=== PATIENT | male | born 1950 | race Caucasian/White ===

== ENCOUNTER 2023-02-20 21:17 | Observation (INO) ==
[2023-02-20 23:10] LABS: ABS Eosinophils 0.1 10^3/uL (0.0-0.5); ABS Lymphocytes 0.4 10^3/uL (1.0-4.8); ABS Monocytes 0.6 10^3/uL (0.0-1.1); ABS Neutrophils 4.9 10^3/uL (1.5-7.6); Eosinophil % 0.9 %; Hematocrit 34.2 % (38-53); Hemoglobin 11.9 g/dL (13.2-16.3); Lymphocyte % 6.1 %; Mean Corpuscular Hemoglobin 28.4 pg (27-33); Mean Corpuscular Hgb Conc 34.7 g/dL (31-36); Mean Corpuscular Volume 81.8 fL (80-97); Mean Platelet Volume 8.1 fL (7.5-11.2); Platelet Count 148 10^3/uL (150-450); Red Blood Count 4.18 10^6/uL (4.06-5.63); Red Cell Distribution Width 17.3 % (12-17)
[2023-02-20 23:30] LABS: ALT 21 U/L (7-52); Albumin 3.2 g/dL (3.2-5.2); Albumin/Globulin Ratio 0.7 (1-3); Alkaline Phosphatase 125 U/L (35-149); Anion Gap 10 mmol/L (2-16); Blood Urea Nitrogen 35 mg/dL (6-24); C Reactive Protein 184.33 mg/L (<8.01); CO2 Carbon Dioxide 21 mmol/L (22-32); Calcium 8.8 mg/dL (8.6-10.3); Chloride 97 mmol/L (101-111); Creatinine, Serum 2.01 mg/dL (0.67-1.17); Globulin 4.7 g/dL (2-4); Glucose 63 mg/dL (70-100); Sodium 128 mmol/L (135-145); Total Bilirubin 0.8 mg/dL (0.2-1.0); Total Protein 7.9 g/dL (6.4-8.9); eGFR CKD-EPI 34.2 (>60)
[2023-02-21 01:02] LABS: Urine Appearance Cloudy; Urine Bilirubin Negative (Negative); Urine Blood Negative (Negative); Urine Color Yellow; Urine Glucose Negative (Negative); Urine Ketones Negative (Negative); Urine Nitrite Negative (Negative); Urine Protein 1+(30 mg/dL) (Negative); Urine Specific Gravity 1.015 (1.002-1.030); Urine Urobilinogen Negative (Negative)
[2023-02-21 01:10] LABS: Urine Bacteria Absent (Absent); Urine Red Blood Cell Trace(0-2/hpf) (Absent); Urine Squamous Epithelial Cell Present (Absent); Urine White Blood Cell Trace(0-5/hpf) (Absent)
[2023-02-21 02:34] LABS: Potassium Redraw 3.3 mmol/L (3.5-5.0)
[2023-02-21] MEDS ORDERED: Ondansetron 4 mg VIAL 2 MG/ML 2 ml VIAL IV PRN (04:05)
[2023-02-21] MEDS ORDERED: Dextrose 50% Syringe 50 ml 25 GM/50 ML SYRINGE IV PUSH PRN (04:15)
[2023-02-21] MEDS: cefTRIAXone 2 gm/50 mL D5W 2 GM/50 ML BAG IV SCH (05:39)
[2023-02-21] MEDS: Albumin Human 25% 25 GM/100 ML BTL IV SCH ×4 (06:39→12:24)
[2023-02-21 08:07] LABS: TSH Ultra Thyroid Stim Horm 1.83 mcIU/mL (0.34-5.60)
[2023-02-21 10:44] LABS: Hematocrit 29.9 % (38-53); Mean Corpuscular Hemoglobin 27.9 pg (27-33); Mean Corpuscular Hgb Conc 33.5 g/dL (31-36); Mean Corpuscular Volume 83.4 fL (80-97); Mean Platelet Volume 8.1 fL (7.5-11.2); Platelet Count 102 10^3/uL (150-450); Red Blood Count 3.59 10^6/uL (4.06-5.63); Red Cell Distribution Width 16.9 % (12-17); White Blood Count 3.6 10^3/uL (3.6-10.2)
[2023-02-21 11:06] LABS: ALT 36 U/L (7-52); Albumin 3.8 g/dL (3.2-5.2); Albumin/Globulin Ratio 1.1 (1-3); Alkaline Phosphatase 138 U/L (35-149); Anion Gap 11 mmol/L (2-16); Blood Urea Nitrogen 34 mg/dL (6-24); CO2 Carbon Dioxide 24 mmol/L (22-32); Calcium 9.2 mg/dL (8.6-10.3); Chloride 99 mmol/L (101-111); Creatinine, Serum 1.82 mg/dL (0.67-1.17); Globulin 3.6 g/dL (2-4); Glucose 102 mg/dL (70-100); Sodium 134 mmol/L (135-145); Total Bilirubin 0.6 mg/dL (0.2-1.0); Total Protein 7.4 g/dL (6.4-8.9); eGFR CKD-EPI 38.5 (>60)
[2023-02-21 11:43] LABS: ABS Lymphocytes 0.3 10^3/uL (1.0-4.8); ABS Monocytes 0.5 10^3/uL (0.0-1.1); ABS Neutrophils 2.8 10^3/uL (1.5-7.6); Eosinophil % 0.5 %; Lymphocyte % 8.8 %; Nucleated Red Blood Cells % 0.1 %/100WBC (0.0-0.8); RBC Morphology Normal (Normal)
[2023-02-21 12:18] LABS: Body Fluid Appearance Clear; Body Fluid Color Yellow; Body Fluid Source Peritonial Fluid
[2023-02-21 12:39] LABS: Body Fluid Total Nucleated 80 /mcL
[2023-02-21 12:47] LABS: Potassium Redraw 3.9 mmol/L (3.5-5.0)
[2023-02-21 13:17] LABS: INR 1.24 (0.83-1.13)
[2023-02-21 13:43] LABS: Body Fluid Mono 61 %; Body Fluid Total Cells Counted 200; Body Fluid Variant Lymph 1 %
[2023-02-21] MEDS ORDERED: Enoxaparin 40 MG/0.4 ML SYR SUBCUT SCH (17:00)
[2023-02-22] MEDS: cefTRIAXone 2 gm/50 mL D5W 2 GM/50 ML BAG IV SCH (06:09)
[2023-02-22 07:09] LABS: INR 1.35 (0.83-1.13)
[2023-02-22 08:04] LABS: Albumin 3.2 g/dL (3.2-5.2); Albumin/Globulin Ratio 1.1 (1-3); Calcium 8.5 mg/dL (8.6-10.3); Creatinine, Serum 1.51 mg/dL (0.67-1.17); Globulin 2.9 g/dL (2-4); Potassium 3.7 mmol/L (3.5-5.0); Total Bilirubin 0.5 mg/dL (0.2-1.0); Total Protein 6.1 g/dL (6.4-8.9); eGFR CKD-EPI 48.2 (>60)
[2023-02-22 08:14] LABS: Hematocrit 26.7 % (38-53); Hemoglobin 9.1 g/dL (13.2-16.3); Mean Corpuscular Hemoglobin 27.9 pg (27-33); Mean Corpuscular Hgb Conc 34.1 g/dL (31-36); Mean Corpuscular Volume 81.7 fL (80-97); Mean Platelet Volume 7.5 fL (7.5-11.2); Platelet Count Platelets clumped. 10^3/uL (150-450); Red Blood Count 3.27 10^6/uL (4.06-5.63); Red Cell Distribution Width 16.9 % (12-17); White Blood Count 3.7 10^3/uL (3.6-10.2)
[2023-02-22 13:24] VITALS: BP 99/62
[2023-02-22 13:52] LABS: Fluid Type, Protein, Total PERITONEAL; Glucose, BF 110 mg/dL; Total Protein, BF 2.4 g/dL
[2023-02-22 13:53] LABS: Albumin, BF 1.2 g/dL; Fluid Type, Albumin PERITONEAL
[2023-02-22 14:17] LABS: Lactate Dehydrogenase, BF 62 U/L
[2023-02-22] MEDS ORDERED: Heparin 5000 UNITS/ML 1 mL VIAL SUBCUT SCH (20:30)
== END 2023-02-22 16:25 | disposition home or self-care (01) ==
LOC: EDHOLD 21:17 → ED 21:17 → SUATTDRO 02-21 04:05 → EDHOLD 02-21 07:25 → MED 02-21 14:32
PROVIDERS: ADMIT Internal Medicine; ATTEND Internal Medicine